=== PATIENT | female | born 1960 | race Caucasian/White ===

== ENCOUNTER 2019-10-14 16:00 | Emergency (ER) | payer OTHER ==
[2019-10-14] MEDS ORDERED: HYDROCODONE/APAP 7.5/325 MG TAB ONE (17:19)
[2019-10-14] MEDS ORDERED: ONDANSETRON 4 MG (ODT) TAB ONE (17:19)
--- NOTE | 2019-10-14 17:40 | RAD REPORT ---
EXAM DESCRIPTION: RAD - Wrist Left 3 View - 10/14/2019 5:23 pm CLINICAL HISTORY: pain Pain COMPARISON: No comparisons FINDINGS: Mild osteoarthritic changes involving the radiocarpal joint. No acute fracture or disloca tion. Mild soft tissue swelling along the dorsum of the wrist.
--- NOTE | 2019-10-14 18:08 | RAD REPORT ---
EXAM DESCRIPTION: CT - Head Brain Wo Cont - 10/14/2019 5:46 pm CLINICAL HISTORY: Large hematoma Trauma, head injury COMPARISON: No comparisons TECHNIQUE: All CT scans are performed using dose optimization technique as appropriate and may inclu de automated exposure control or mA/KV adjustment according to patient size. FINDINGS: No intracranial hemorrhage, hydrocephalus or extra-axial fluid collection.No areas of brai n edema or evidence of midline shift. The paranasal sinuses and mastoids are clear. The calvarium is intact. Large right periorbital hemato ma. IMPRESSION: No acute intracranial abnormality. Right periorbital hematoma.
--- NOTE | 2019-10-14 18:11 | RAD REPORT ---
EXAM DESCRIPTION: CT - CTORBIT CLINICAL HISTORY: Large hematoma Trauma, pain COMPARISON: No comparisons TECHNIQUE: Axial 2 mm thick images of the orbits were obtained with sagittal and coronal reconstruct ion images. All CT scans are performed using dose optimization technique as appropriate and may include automated exposure control or mA/KV adjustment according to patient size. FINDINGS: No acute facial bone fracture is seen.Large periorbital hematoma on the right.No vitreous abnormality. No volume loss of the right globe. The paranasal sinuses and mastoids are clear. Skullbase is intact. IMPRESSION: Negative for facial bone fracture.Right periorbital soft tissue swelling. No vitreous or globe acute finding.
[2019-10-14] MEDS ORDERED: FENTANYL CITR 100 MCG/2 ML ONE (18:17)
[2019-10-14] MEDS ORDERED: PROMETHAZINE INJ 25 MG/ML AMP ONE (18:50)
--- NOTE | 2019-10-14 19:21 | ER ---
Nurse's Notes [facility] Name: Delphine Peters Age: 59 yrs Sex: Female : 1960 Arrival Date: 10/14/2019 Time: 16:08 Bed 27 Private MD: Diagnosis: Right supraorbital hematoma;Pain in left wrist Presentation: 10/13 16:37 Chief complaint: Patient states: Tripped over dog and hit head on concrete, denies LOC, ph does not take blood thinners, large area of swelling note to L eye, pt also reports L wrist and foot pain, dizziness and nausea. Coronavirus screen: The patient has NOT traveled to a country currently being monitored by the CDC within the last 14 days. The patient has NOT had contact with any known and/or suspected case of coronavirus. Ebola Screen: No symptoms or risks identified at this time. Initial Sepsis Screen: Does the patient meet any 2 criteria? No. Patient's initial sepsis screen is negative. Does the patient have a suspected source of infection? No. Patient's initial sepsis screen is negative. Risk Assessment: Do you want to hurt yourself or someone else? Patient reports no desire to harm self or others. 16:37 Method Of Arrival: Ambulatory ph 16:37 Acuity: EDMUNDO 4 ph 17:39 Care prior to arrival: None. Mechanism of Injury: Fall from standing position. ls4 approximately 3 feet. Triage Assessment: 16:41 General: Appears uncomfortable, Behavior is calm, cooperative. Neuro: Level of ls4 Consciousness is awake, alert, obeys commands, Oriented to person, place, time, situation, Interpretive Naturalist are equal bilaterally Moves all extremities. Gait is steady, Speech is normal, Facial symmetry appears normal, Pupils are PERRLA, Intact. Cardiovascular: Denies chest pain, diaphoresis, fatigue, lightheadedness, nausea, palpitations, shortness of breath, syncope, vomiting. Respiratory: Respiratory effort is even, unlabored, Respiratory pattern is regular. GI: No deficits noted. No signs and/or symptoms were reported involving the gastrointestinal system. : No deficits noted. No signs and/or symptoms were reported regarding the genitourinary system. Derm: Bruising that is bright red, dark purple, on right upper eyelid. Musculoskeletal: Circulation, motion, and sensation intact. Capillary refill < 3 seconds, Range of motion: intact in all extremities, Swelling present in right eye. Trauma Activation: Not Applicable Physician: ED Physician; Name: ; Notified At: ; Arrived At: Physician: General Surgeon; Name: ; Notified At: ; Arrived At: Physician: Radiology; Name: ; Notified At: ; Arrived At: Physician: Respiratory; Name: ; Notified At: ; Arrived At: Physician: Lab; Name: ; Notified At: ; Arrived At: Historical: - Allergies: 16:40 No Known Allergies; ph - Home Meds: 16:40 atorvastatin oral oral [Active]; Hydrochlorothiazide Oral [Active]; ph - PMHx: 16:40 Hypertension; ph - PSHx: 16:40 None; ph - Immunization history:: Adult Immunizations unknown. - Social history:: Smoking status: Patient denies any tobacco usage or history of. Screenin:41 Abuse screen: Denies threats or abuse. Denies injuries from another. ls4 16:41 Nutritional screening: No deficits noted. Tuberculosis screening: No symptoms or risk ls4 factors identified. Fall Risk None identified. Primary Survey: 10/12 17:41 NO uncontrolled hemorrhage observed. A: The patient is alert. Airway: patent, Patient ls4 intubated prior to arrival Oxygen via non-rebreather Oral cavity: clear, Trachea midline. Breathing/Chest: Respiratory pattern: regular, Respiratory effort: spontaneous, unlabored. Circulation: Cardiac rhythm: sinus rhythm Heart tones Pulses: palpable right radial artery and left radial artery. Disability Alert. Exposure/Environment: All clothing and personal items were removed. Forensic evidence collection is not deemed to be indicated at this time. Items placed in patient belonging bag. There is no evidence of uncontrolled external bleeding. Obvious injury(ies) are noted at this time: right eye A warming method has been applied: A warm blanket has been provided to the patient. Secondary Survey: 17:41 HEENT: Eyes: Edema noted right eyebrow, right upper eyelid and right outer canthus. ls4 Ecchymosis noted right eyebrow, right upper eyelid and right outer canthus. Gastrointestinal: No deficits noted. : No deficits noted. No signs and/or symptoms were reported regarding the genitourinary system. Musculoskeletal: No deficits noted. No signs and/or symptoms reported regarding the musculoskeletal system. Injury Description: contusion, right eye. Assessment: 03/08 17:36 Pain: Complains of pain in right eye Pain currently is 10 out of 10 on a pain scale. ls4 Neuro: No deficits noted. Cardiovascular: No deficits noted. Respiratory: No deficits noted. GI: No deficits noted. : No deficits noted. Derm: No deficits noted. Musculoskeletal: No deficits noted. 17:39 General: Appears uncomfortable, Behavior is calm, cooperative. EENT: Sclera/Cornea are ls4 clear in outer aspect of conjuctiva of right eye and inner aspect of conjuctiva of right eye. 19:02 Reassessment: Patient and/or family updated on plan of care and expected duration. Pain ls4 level reassessed. Patient is alert, oriented x 3, equal unlabored respirations, skin warm/dry/pink. PT REQUESTING PRESCRIPTION FOR NAUSEA. GARETH HEAD PUMPER NOTIFIED AND GAVE HER PRESCRIPTION. Patient states feeling better. Patient states symptoms have improved. Vital Signs: 16:37 BP 179 / 75; Pulse 60; Resp 18; Temp 98.0; Pulse Ox 100% on R/A; Weight 87.09 kg; ph Height 5 ft. 2 in. (157.48 cm); 18:30 BP 163 / 82; Pulse 63; Resp 18; Temp 97.6(TE); Pulse Ox 100% on R/A; mh5 16:37 Body Mass Index 35.12 (87.09 kg, 157.48 cm) ph [place] Coma Score: 17:39 Eye Response: spontaneous(4). Verbal Response: oriented(5). Motor Response: obeys ls4 commands(6). Total: 15. Trauma Score (Adult): 17:39 Eye Response: spontaneous(1); Verbal Response: oriented(1); Motor Response: obeys ls4 commands(2); Systolic BP: > 89 mm Hg(4); Respiratory Rate: 10 to 29 per min(4); [place] Score: 15; Trauma Score: 12 ED Course: 16:08 Patient arrived in ED. fj1 16:39 Triage completed. ph 16:40 Arm band placed on. ph 16:41 Patient has correct armband on for positive identification. Bed in low position. Call ls4 light in reach. Side rails up X 1. Pulse ox on. NIBP on. Ice pack to injury. 16:41 No provider procedures requiring assistance completed. ls4 16:45 Attema, Gareth, DRY CLEANER HAND-C [facility]. la1 16:45 Gopal Juarez MD is Attending Physician. la1 17:10 Delphine Amezquita RN is Primary Nurse. ls4 17:27 Wrist Left 3 View In Process Unspecified. EDMS 17:39 Patient maintains SpO2 saturation greater than 95% on room air. ls4 17:46 Orbits Wo Con W/ Mpr In Process Unspecified. EDMS 17:46 Head Brain Wo Cont In Process Unspecified. EDMS 17:47 CT completed. Patient tolerated procedure well. Patient moved back from CT. mw3 Administered Medications: 17:15 Drug: Paden (7.5 mg-325 mg) 1 tabs Route: PO; ls4 18:26 Follow up: Response: No adverse reaction; No change in condition ls4 17:15 Drug: Zofran (Ondansetron) 4 mg Route: PO; ls4 17:45 Follow up: Response: No adverse reaction ls4 18:08 CANCELLED (Patient Refused): fentaNYL (PF) 50 mcg IVP once; RASS on ADMIN: Combtv4, la1 Very Agttd3, Agttd2, Rstlss1, AlertClm0, Drwsy-1, Lt Sdtn-2, Mod Sdtn-3, Dp Sdtn-4, UnArsble-5 18:15 Drug: fentaNYL (PF) 50 mcg Route: IM; Site: right deltoid; ls4 18:40 Follow up: Response: No adverse reaction; Marked relief of symptoms ls4 18:40 Drug: Phenergan 25 mg Route: IM; Site: left deltoid; ls4 19:10 Follow up: Response: No adverse reaction; Marked relief of symptoms ls4 Intake: 17:39 PO: 0ml; Total: 0ml. ls4 Outcome: 19:21 Discharge ordered by . la1 19:51 Patient left the ED. ls4 19:51 Discharged to home ambulatory, with family. ls4 19:51 Condition: stable 19:51 Discharge instructions given to patient, family, Instructed on discharge instructions, follow up and referral plans. medication usage, safety practices. Signatures: Dispatcher [employer] EDMS Gareth Villanueva FNP-C DRY CLEANER HAND-Cla1 Minerva Sorensen RN RN Felicia [facility] Elena Dyson mw3 Delphine Amezquita RN RN ls4 Mynor Suresh fj1 Corrections: (The following items were deleted from the chart) 18:26 07:15 Paden (7.5 mg-325 mg) 1 tabs PO ls4 ls4 23:49 20:15 Patient left the ED. ls4 ls4 23:55 23:55 Response: No adverse reaction; Marked relief of symptoms ls4 ls4
--- NOTE | 2019-10-14 19:21 | EDPHYS ---
Physician Documentation [facility] Name: Delphine Peters Age: 59 yrs Sex: Female : 1960 Arrival Date: 10/14/2019 Time: 16:08 Bed 27 Private MD: ED Physician Gopal Juarez HPI: 10/13 16:55 This 59 yrs old Female presents to ER via Ambulatory with complaints of Fall la1 Injury, Head Injury-Adult. 16:55 Details of fall: The patient fell from an upright position, while standing. Onset: The la1 symptoms/episode began/occurred just prior to arrival. Associated injuries: The patient sustained injury to the head, hematoma, left wrist. Severity of symptoms: At their worst the symptoms were moderate. The patient has not experienced similar symptoms in the past. pt reports tripping over her dog and hitting her head on the concrete ground, denies LOC, large hematoma to right supraorbital area. Historical: - Allergies: 16:40 No Known Allergies; ph - Home Meds: 16:40 atorvastatin oral oral [Active]; Hydrochlorothiazide Oral [Active]; ph - PMHx: 16:40 Hypertension; ph - PSHx: 16:40 None; ph - Immunization history:: Adult Immunizations unknown. - Social history:: Smoking status: Patient denies any tobacco usage or history of. ROS: 18:31 Constitutional: Negative for fever, chills, and weight loss, Eyes: Negative for injury, la1 pain, redness, and discharge, ENT: Negative for injury, pain, and discharge, Neck: Negative for injury, pain, and swelling, Cardiovascular: Negative for chest pain, palpitations, and edema, Respiratory: Negative for shortness of breath, cough, wheezing, and pleuritic chest pain, Abdomen/GI: Negative for abdominal pain, nausea, vomiting, diarrhea, and constipation, Back: Negative for injury and pain, MS/Extremity: + for left wrist pain Skin: + for hematoma to forehead Neuro: Negative for headache, weakness, numbness, tingling, and seizure. Exam: 18:32 Constitutional: This is a well developed, well nourished patient who is awake, alert, la1 and in no acute distress. Head/Face: Large hematoma noted to right supraorbital area Eyes: Pupils equal round and reactive to light, extra-ocular motions intact. Lids and lashes normal. Conjunctiva and sclera are non-icteric and not injected. Cornea within normal limits. Periorbital areas with no swelling, redness, or edema. ENT: Nares patent. No nasal discharge, no septal abnormalities noted. Tympanic membranes are normal and external auditory canals are clear. Oropharynx with no redness, swelling, or masses, exudates, or evidence of obstruction, uvula midline. Mucous membranes moist. Neck: Trachea midline,Supple, full range of motion without nuchal rigidity, or vertebral point tenderness. No Meningismus. Chest/axilla: Normal chest wall appearance and motion. Nontender with no deformity. No lesions are appreciated. Cardiovascular: Regular rate and rhythm with a normal S1 and S2. No gallops, murmurs, or rubs. Normal PMI, no JVD. No pulse deficits. Respiratory: Lungs have equal breath sounds bilaterally, clear to auscultation Abdomen/GI: Soft, non-tender, with normal bowel sounds. No distension or tympany. No guarding or rebound. No evidence of tenderness throughout. Back: No spinal tenderness. No costovertebral tenderness. Full range of motion. Skin: Warm, dry with normal turgor. Normal color with no rashes, no lesions, and no evidence of cellulitis. 18:32 Musculoskeletal/extremity: ROM: limited active range of motion due to pain, in the left wrist, Pulses: noted to be 3+ in the right radial artery and left radial artery, Sensation intact. Vital Signs: 16:37 BP 179 / 75; Pulse 60; Resp 18; Temp 98.0; Pulse Ox 100% on R/A; Weight 87.09 kg; ph Height 5 ft. 2 in. (157.48 cm); 18:30 BP 163 / 82; Pulse 63; Resp 18; Temp 97.6(TE); Pulse Ox 100% on R/A; mh5 16:37 Body Mass Index 35.12 (87.09 kg, 157.48 cm) ph Ibeth Coma Score: 17:39 Eye Response: spontaneous(4). Verbal Response: oriented(5). Motor Response: obeys ls4 commands(6). Total: 15. Trauma Score (Adult): 17:39 Eye Response: spontaneous(1); Verbal Response: oriented(1); Motor Response: obeys ls4 commands(2); Systolic BP: > 89 mm Hg(4); Respiratory Rate: 10 to 29 per min(4); [place] Score: 15; Trauma Score: 12 MDM: 16:47 Patient medically screened. la1 19:18 Data reviewed: vital signs, nurses notes, radiologic studies, I have discussed the la1 patient's presentation/case with the attending Emergency Department Physician; and as a result, I will discharge patient. Test interpretation: by ED physician or midlevel provider: plain radiologic studies. Counseling: I had a detailed discussion with the patient and/or guardian regarding: the historical points, exam findings, and any diagnostic results supporting the discharge/admit diagnosis, radiology results, the need for outpatient follow up, a family practitioner, to return to the emergency department if symptoms worsen or persist or if there are any questions or concerns that arise at home. ED course: large hematoma in the right supraorbital area, no involvement of the globe, EOMs intact, no visual changes in affected eye. Pt given strict return precautions.. 19:26 ED course: no drug seeking behavior per senior gamemaster aware. ma2 03 17:04 Order name: Orbits Wo Con W/ Mpr; Complete Time: 18:24 EDMS 10/13 17:04 Order name: Head Brain Wo Cont; Complete Time: 18:24 EDMS 08 17:06 Order name: Wrist Left 3 View; Complete Time: 18:24 EDMS Administered Medications: 17:15 Drug: [place] (7.5 mg-325 mg) 1 tabs Route: PO; ls4 18:26 Follow up: Response: No adverse reaction; No change in condition ls4 17:15 Drug: Zofran (Ondansetron) 4 mg Route: PO; ls4 17:45 Follow up: Response: No adverse reaction ls4 18:08 CANCELLED (Patient Refused): fentaNYL (PF) 50 mcg IVP once; RASS on ADMIN: Combtv4, la1 Very Agttd3, Agttd2, Rstlss1, AlertClm0, Drwsy-1, Lt Sdtn-2, Mod Sdtn-3, Dp Sdtn-4, UnArsble-5 18:15 Drug: fentaNYL (PF) 50 mcg Route: IM; Site: right deltoid; ls4 18:40 Follow up: Response: No adverse reaction; Marked relief of symptoms ls4 18:40 Drug: Phenergan 25 mg Route: IM; Site: left deltoid; ls4 19:10 Follow up: Response: No adverse reaction; Marked relief of symptoms ls4 Disposition: 10/14 07:03 Co-signature as Attending Physician, Gopal Juarez MD. Chart complete. rn Disposition: 10/14/19 19:21 Discharged to Home. Impression: Right supraorbital hematoma, Pain in left wrist. - Condition is Stable. - Discharge Instructions: BRENDEN Clayton for Routine Care of Injuries, Wrist Pain. - Prescriptions for Tylenol- Codeine #3 300-30 mg Oral Tablet - take 2 tablet by ORAL route every 6 hours As needed; 30 tablet. Zofran 4 mg Oral Tablet - take 1 tablet by ORAL route every 12 hours As needed; 20 tablet. - Medication Reconciliation Form, Thank You Letter form. - Follow up: Private Physician; When: 2 - 3 days; Reason: Recheck today's complaints, Re-evaluation by your physician. - Problem is new. - Symptoms have improved. Signatures: Dispatcher [employer] EDGopal Costello MD MD rn Gareth Villanueva, DIVER HELPER-C DIVER HELPER-Cla1 Minerva Sorensen RN RN ph Wander Luque MD MD ma2 Delphine Amezquita RN RN ls4 Corrections: (The following items were deleted from the chart) 10/13 18:08 18:08 fentaNYL (PF) 50 mcg IVP once; RASS on ADMIN: Combtv4, Very Agttd3, Agttd2, la1 Rstlss1, AlertClm0, Drwsy-1, Lt Sdtn-2, Mod Sdtn-3, Dp Sdtn-4, UnArsble-5 ordered. la1 20:15 19:21 10/14/2019 19:21 Discharged to Home. Impression: Right supraorbital hematoma; ls4 Pain in left wrist. Condition is Stable. Forms are Medication Reconciliation Form, Thank You Letter, Antibiotic Education, Prescription Opioid Use. Follow up: Private Physician; When: 2 - 3 days; Reason: Recheck today's complaints, Re-evaluation by your physician. Problem is new. Symptoms have improved. la1
[2019-10-14 20:21] VITALS: O2SAT 100
[2019-10-14 20:22] VITALS: BP 163/82; TEMP 97.6
== END 2019-10-14 20:15 | disposition home or self-care (01) ==
LOC: ER 16:00
DX: S00.83XA Contusion of other part of head, initial encounter (principal); W01.198A Fall on same level from slipping, tripping and stumbling with subsequent striking against other object, initial encounter; Y93.K1 Activity, walking an animal; Y92.9 Unspecified place or not applicable; I10 Essential (primary) hypertension
CPT/HCPCS: 70450; 70480; 76377; 73110; 96372; 99284; J2550; J3010

== ENCOUNTER 2023-01-17 14:02 | Emergency (ER) | payer OTHER ==
[2023-01-17] MEDS ORDERED: ASPIRIN 81 MG CHEWABLE TABLET ONE (14:31)
[2023-01-17 14:36] LABS: Absolute Lymphocytes (CBC) 1.7 K/uL (0.7-4.9); Hematocrit 43.1 % (36.0-45.0); Lymphocytes % 26.9 % (15.3-44.8); MCV 88.1 fL (80-100); MPV 8.9 fL (7.6-11.3); RBC Red Blood Cell Count 4.89 M/uL (3.86-4.86)
[2023-01-17 14:56] LABS: Albumin 3.8 g/dL (3.4-5.0); Bilirubin Direct 0.2 mg/dL (0-0.2); Bilirubin Indirect, Calculated 0.5 mg/dL (0.2-0.8); Bilirubin Total 0.7 mg/dL (0.2-1.0); Potassium 3.4 mEq/L (3.5-5.1); Protein, Total 7.3 g/dL (6.4-8.2); Troponin High Sensitivity 3.9 pg/mL (<58.9)
--- NOTE | 2023-01-17 16:28 | RAD REPORT ---
EXAM DESCRIPTION: Brian Single View01/17/2023 3:49 pm CLINICAL HISTORY: Chest pain COMPARISON: none FINDINGS: The lungs appear clear of acute infiltrate. The heart is normal size IMPRESSION: No acute abnormalities displayed
--- NOTE | 2023-01-17 16:40 | ER ---
Nurse's Notes [facility] Name: Delphine Peters Age: 62 yrs Sex: Female : 1960 Arrival Date: 01/17/2023 Time: 14:02 Bed 25 Private MD: Diagnosis: Chest pain, unspecified Presentation: 01/17 14:18 Chief complaint: Patient states: "I was out drinking on Tuesday night and started mb9 having severe chest pain. I took a nitro and it helped. I slept all day yesterday and that seemed to help as well. Now I feel SOB and have this tightness in my chest.". Coronavirus screen: Vaccine status: Patient reports receiving the 2nd dose of the covid vaccine. Ebola Screen: No symptoms or risks identified at this time. Initial Sepsis Screen: Does the patient meet any 2 criteria? No. Patient's initial sepsis screen is negative. Does the patient have a suspected source of infection? No. Patient's initial sepsis screen is negative. Risk Assessment: Do you want to hurt yourself or someone else? Patient reports no desire to harm self or others. Onset of symptoms was 2022. 14:18 Method Of Arrival: Ambulatory mb9 14:18 Acuity: EDMUNDO 3 mb9 Triage Assessment: 14:21 General: Appears uncomfortable, Behavior is appropriate for age. Pain: Complains of mb9 pain in chest Pain does not radiate. Pain currently is 2 out of 10 on a pain scale. Quality of pain is described as pressure. Neuro: Jung Agitation-Sedation Scale (RASS): 0 - Alert and Calm Level of Consciousness is awake, alert, obeys commands, Oriented to person, place, time, situation, Appropriate for age. Cardiovascular: Reports chest pain, fatigue, shortness of breath, Heart tones S1 S2 present Patient's skin is warm and dry. Rhythm is regular. Respiratory: Airway is patent Respiratory effort is even, unlabored, Respiratory pattern is regular, symmetrical, Breath sounds are clear bilaterally. GI: No signs and/or symptoms were reported involving the gastrointestinal system. Derm: Skin is pink, warm \\T\\ dry. Musculoskeletal: Range of motion: intact in all extremities. Historical: - Allergies: 14:20 Latex, Natural Rubber; mb9 - PMHx: 14:20 Hypertension; lung cancer; Myocardial infarction; mb9 - PSHx: 14:20 Stented artery; x2; mb9 - Immunization history:: Adult Immunizations up to date. - Social history:: Smoking status: Patient denies any tobacco usage or history of. Screenin:22 [facility] ED Fall Risk Assessment (Adult) History of falling in the last 3 months, mb9 including since admission No falls in past 3 months (0 pts) Confusion or Disorientation No (0 pts) Intoxicated or Sedated No (0 pts) Impaired Gait No (0 pts) Mobility Assist Device Used No (0 pt) Altered Elimination No (0 pt) Score/Fall Risk Level 0 - 2 = Low Risk Oriented to surroundings, Maintained a safe environment, Educated pt \\T\\ family on fall prevention, incl call for assistance when getting out of bed. Abuse screen: Denies threats or abuse. Nutritional screening: No deficits noted. Tuberculosis screening: No symptoms or risk factors identified. Assessment: 14:30 Reassessment: see triage assessment. mb9 15:45 Reassessment: No changes from previously documented assessment. Patient and/or family mb9 updated on plan of care and expected duration. Pain level reassessed. Patient is alert, oriented x 3, equal unlabored respirations, skin warm/dry/pink. 17:02 Reassessment: Patient and/or family updated on plan of care and expected duration. Pain mb9 level reassessed. Patient is alert, oriented x 3, equal unlabored respirations, skin warm/dry/pink. Patient states feeling better. Patient states symptoms have improved. Vital Signs: 14:18 BP 163 / 80; Pulse 61; Resp 18; Temp 97.9; Pulse Ox 99% on R/A; Weight 92.99 kg; Height mb9 5 ft. 7 in. ; 15:05 BP 145 / 69; Pulse 51; Resp 18; Pulse Ox 96% on R/A; mb9 15:50 BP 145 / 74; Pulse 52; Resp 18; Pulse Ox 97% on R/A; mb9 16:51 BP 138 / 76; Pulse 52; Resp 18; Pulse Ox 96% on R/A; mb9 14:18 Body Mass Index 32.11 (92.99 kg, 170.18 cm) mb9 ED Course: 14:03 Patient arrived in ED. mr 14:06 Dino Cameron DO is Attending Physician. ms3 14:20 Triage completed. mb9 14:20 Arm band placed on. mb9 14:20 EKG done, by ED staff, reviewed by Dino Cameron DO. mb9 14:20 Patient maintains SpO2 saturation greater than 95% on room air. mb9 14:22 Placed in gown. Bed in low position. Call light in reach. Side rails up X 1. Client mb9 placed on continuous cardiac and pulse oximetry monitoring. NIBP monitoring applied. groundwater monitoring technician on. 14:30 Shelby Patino, RN is Primary Nurse. mb9 14:31 No provider procedures requiring assistance completed. Inserted saline lock: 20 gauge mb9 in left antecubital area, using aseptic technique. 14:31 Basic Metabolic Panel Sent. mb9 14:31 CBC with Diff Sent. mb9 14:31 LFT's Sent. mb9 14:31 Magnesium Sent. mb9 14:31 NT PRO-BNP Sent. mb9 14:31 Troponin HS Sent. mb9 14:56 D-Dimer Sent. mb9 15:51 XRAY Chest (1 view) In Process Unspecified. EDMS 16:39 Marcio Hester MD is Referral Physician. ms3 17:03 IV discontinued, intact, bleeding controlled, No redness/swelling at site. Pressure mb9 dressing applied. Administered Medications: 14:25 Drug: Aspirin PO Chewable Tablet 324 mg Route: PO; mb9 15:05 Follow up: Response: No adverse reaction mb9 Medication: 14:31 VIS not applicable for this client. mb9 Outcome: 16:39 Discharge ordered by . ms3 17:03 Discharged to home ambulatory. mb9 17:03 Condition: stable 17:03 Discharge instructions given to patient, Instructed on discharge instructions, follow up and referral plans. Demonstrated understanding of instructions, follow-up care. 17:03 Patient left the ED. mb9 Signatures: Dispatcher [employer] [facility] Mina Shelby Dino Swanson DO DO ms3 Shelby Patino, RN RN mb9
--- NOTE | 2023-01-17 16:40 | EDPHYS ---
Physician Documentation [facility] Name: Delphine Peters Age: 62 yrs Sex: Female : 1960 Arrival Date: 01/17/2023 Time: 14:02 Bed 25 Private MD: ED Physician Dino Cameron HPI: 01/17 14:33 This 62 yrs old Female presents to ER via Ambulatory with complaints of Chest Pain, ms3 Shortness Of Breath. 14:33 62-year-old female with past medical history of hypertension, lung cancer, myocardial ms3 infarction presents for chest pain that began on Tuesday. Patient states the pain is described as a pressure and rated 2/10. Patient endorses shortness of breath and fatigue. Patient denies nausea, vomiting, sweats. Patient denies alleviating or inciting factors. Historical: - Allergies: 14:20 Latex, Natural Rubber; mb9 - PMHx: 14:20 Hypertension; lung cancer; Myocardial infarction; mb9 - PSHx: 14:20 Stented artery; x2; mb9 - Immunization history:: Adult Immunizations up to date. - Social history:: Smoking status: Patient denies any tobacco usage or history of. ROS: 14:33 Constitutional: Negative for fever, and chills. Neck: Negative for injury, pain, and ms3 swelling, Abdomen/GI: Negative for abdominal pain, nausea, vomiting, diarrhea, and constipation. 14:33 Skin: Negative for injury, rash, and discoloration, Neuro: Negative for headache, weakness, numbness, tingling. Psych: Negative for depression, anxiety, suicide ideation, homicidal ideation, and hallucinations. 14:33 Cardiovascular: Positive for chest pain. 14:33 Respiratory: Positive for shortness of breath. Exam: 14:31 ECG was reviewed by the Attending Physician. ms3 14:33 Constitutional: This is a well developed, well nourished patient who is awake, alert, ms3 and in no acute distress. Head/Face: Normocephalic, atraumatic. Chest/axilla: Normal chest wall appearance and motion. Nontender with no deformity. Cardiovascular: Regular rate and rhythm with a normal S1 and S2. No gallops, murmurs, or rubs. Normal PMI, no JVD. No pulse deficits. Respiratory: Lungs have equal breath sounds bilaterally, clear to auscultation and percussion. No rales, rhonchi or wheezes noted. No increased work of breathing, no retractions or nasal flaring. Abdomen/GI: Soft, non-tender, with normal bowel sounds. No distension or tympany. No guarding or rebound. No evidence of tenderness throughout. Skin: Warm, dry with normal turgor. Normal color with no rashes, no lesions, and no evidence of cellulitis. MS/ Extremity: Pulses equal, no cyanosis. Neurovascular intact. Full, normal range of motion. Vital Signs: 14:18 BP 163 / 80; Pulse 61; Resp 18; Temp 97.9; Pulse Ox 99% on R/A; Weight 92.99 kg; Height mb9 5 ft. 7 in. ; 15:05 BP 145 / 69; Pulse 51; Resp 18; Pulse Ox 96% on R/A; mb9 15:50 BP 145 / 74; Pulse 52; Resp 18; Pulse Ox 97% on R/A; mb9 16:51 BP 138 / 76; Pulse 52; Resp 18; Pulse Ox 96% on R/A; mb9 14:18 Body Mass Index 32.11 (92.99 kg, 170.18 cm) mb9 MDM: 14:18 Patient medically screened. ms3 14:33 Differential diagnosis: abnormal EKG, acute myocardial infarction, coronary artery ms3 disease chest wall pain. 16:06 Independent interpretation of the following test(s) in the Emergency Department X-Ray: ms3 My interpretation is CXR image reviewed by me negative for acute findings.. 16:38 HEART Score: History: Slightly Suspicious (0), ECG: Normal (0), Age: > 45 and < 65 ms3 years (1), Risk Factors: 1 or 2 risk factors (1), Troponin: < or = 1 x Normal Limit (0), Total Score = 2. The patient was given aspirin in the Emergency Department. 16:39 Data reviewed: vital signs, nurses notes, lab test result(s), EKG, radiologic studies, ms3 and as a result, I will discharge patient. Consideration of Admission/Observation Escalation of care including admission/observation considered. I considered the following discharge prescriptions or medication management in the emergency department Medications were administered in the Emergency Department. See MAR. Counseling: I had a detailed discussion with the patient and/or guardian regarding: the historical points, exam findings, and any diagnostic results supporting the discharge/admit diagnosis, lab results, radiology results, the need for outpatient follow up, to return to the emergency department if symptoms worsen or persist or if there are any questions or concerns that arise at home. Response to treatment: the patient's symptoms have resolved after treatment, the patient's pain is gone, and as a result, I will discharge patient. Special discussion: Based on the patient's history, exam, and Dx evaluation, there is no indication for emergent intervention or inpatient Tx. It is understood by the patient/guardian that if the Sx's persist or worsen they need to return immediately for re-evaluation. 01/17 14:06 Order name: Basic Metabolic Panel; Complete Time: 15:20 ms3 01/17 14:06 Order name: CBC with Diff; Complete Time: 14:39 ms3 01/17 14:06 Order name: LFT's; Complete Time: 15:20 ms3 01/17 14:06 Order name: Magnesium; Complete Time: 15:20 ms3 01/17 14:06 Order name: NT PRO-BNP; Complete Time: 15:20 ms3 01/17 14:06 Order name: Troponin HS; Complete Time: 15:20 ms3 01/17 14:35 Order name: D-Dimer; Complete Time: 15:20 ms3 01/17 14:06 Order name: XRAY Chest (1 view); Complete Time: 16:38 ms3 01/17 14:06 Order name: EKG; Complete Time: 14:07 ms3 01/17 14:06 Order name: Cardiac monitoring; Complete Time: 14:18 ms3 01/17 14:06 Order name: EKG - Nurse/Tech; Complete Time: 14:18 ms3 01/17 14:06 Order name: IV Saline Lock; Complete Time: 14:31 ms3 01/17 14:06 Order name: Labs collected and sent; Complete Time: 14:31 ms3 01/17 14:06 Order name: O2 Per Protocol; Complete Time: 14:18 ms3 01/17 14:06 Order name: O2 Sat Monitoring; Complete Time: 14:18 ms3 EC:31 Rate is 60 beats/min. Rhythm is regular. QRS [place] is Normal. AL interval is normal. ms3 Clinical impression: NSR w/ Non-specific ST/T Changes and RBBB. Interpreted by me. Reviewed by me. Administered Medications: 14:25 Drug: Aspirin PO Chewable Tablet 324 mg Route: PO; tay 15:05 Follow up: Response: No adverse reaction mb9 Disposition Summary: 01/17/23 16:39 Discharge Ordered Location: Home ms3 Condition: Stable ms3 Diagnosis - Chest pain, unspecified ms3 Followup: ms3 - With: Marcio Hester MD - When: 1 - 2 days - Reason: Recheck today's complaints Discharge Instructions: - Discharge Summary Sheet ms3 - Nonspecific Chest Pain, Adult ms3 Forms: - Medication Reconciliation Form ms3 - Thank You Letter ms3 - Antibiotic Education ms3 - Prescription Opioid Use ms3 Signatures: Dispatcher [employer] EDDino Palacios DO DO ms3 Shelby Patino, RN RN mb9
[2023-01-17 18:50] VITALS: TEMP 97.9
[2023-01-17 19:07] VITALS: BP 138/76; O2SAT 96
--- NOTE | 2023-01-19 08:22 | EKG ---
Test Date: 2023-01-17 Test Time: 14:15:12 Early Morning Bab[employer]itter: MB MEASUREMENT RESULTS: Intervals: Rate: 60 UT: 142 QRSD: 150 QT: 444 QTc: 444 [place]: P: UT: 142 QRS: 119 T: 182 INTERPRETIVE STATEMENTS: Normal sinus rhythm Right bundle branch block T wave abnormality, consider inferior ischemia Abnormal ECG No previous ECG available for comparison Electronically Signed On 01-19-23 08:18:19 CDT by Marcio Hester
== END 2023-01-17 17:03 | disposition home or self-care (01) ==
LOC: ER 14:02
DX: R07.89 Other chest pain (principal); I10 Essential (primary) hypertension; I25.2 Old myocardial infarction; Z85.118 Personal history of other malignant neoplasm of bronchus and lung; Z91.040 Latex allergy status; Z91.048 Other nonmedicinal substance allergy status
CPT/HCPCS: 36415; 71045; 80048; 80076; 83735; 83880; 84484; 85025; 85379; 93005; 99285